=== PATIENT | female | born 1995 | race Native Hawaiian/Other Pacific Islander ===

== ENCOUNTER 2017-07-19 09:17 | Emergency (ER) | payer OTHER ==
[~2017-07-19] VITALS: Ht 152.4 cm; Wt 60.3 kg
[2017-07-19 09:25] VITALS: BP 146/86; TEMP 98.1
[2017-07-19 10:04] LABS: PLATELET COUNT 274 K/uL (152-353)
[2017-07-19 10:11] LABS: POTASSIUM 3.6 mmol/L (3.6-5.2)
== END 2017-07-19 10:50 | disposition home or self-care (01) ==
LOC: ED 09:17
DX: K21.9 Gastro-esophageal reflux disease without esophagitis (principal)
CPT/HCPCS: 36415; 80048; 82150; 83690; 85027; 99283

== ENCOUNTER 2019-02-18 02:39 | Observation (INO) | payer OTHER ==
[~2019-02-18] VITALS: Ht 157.5 cm; Wt 64.0 kg
[2019-02-18 03:00] VITALS: BP 142/91; TEMP 98.1
[2019-02-18 03:35] LABS: PLATELET COUNT 300 K/uL (152-353)
[2019-02-18 03:42] LABS: POTASSIUM 3.8 mmol/L (3.6-5.2)
[2019-02-18 08:25] VITALS: BP 129/89; TEMP 98.8
[2019-02-18 12:03] VITALS: BP 131/93; TEMP 97.6
[2019-02-18 12:24] VITALS: BP 131/83; TEMP 97.6; Ht 157.5 cm; Wt 64.0 kg
[2019-02-18 16:00] VITALS: BP 135/73; TEMP 98.2
[2019-02-18 20:00] VITALS: BP 116/74; TEMP 98.6
[2019-02-19] VITALS (11 sets, daily range): BP systolic 111–131; BP diastolic 56–76; TEMP 97.7–98.6
[2019-02-19 05:42] LABS: PLATELET COUNT 215 K/uL (152-353)
[2019-02-19 05:50] LABS: POTASSIUM 3.8 mmol/L (3.6-5.2)
== END 2019-02-19 16:30 | disposition home or self-care (01) ==
LOC: ED 02:39 → MED/SURG 10:37
PROVIDERS: Emergency Medicine; Family Medicine; ADMIT Emergency Medicine
PROC: 0FT44ZZ Resection of Gallbladder, Percutaneous Endoscopic Approach (ICD-10-PCS; principal; 2019-02-19)
DX: K80.12 Calculus of gallbladder with acute and chronic cholecystitis without obstruction (principal)
CPT/HCPCS: 36415; 80053; 81000; 81025; 82150; 83605; 83690; 85027; 87040; 87077; 87185; 87205; 93005; 96360; 96365; 96375; 99220; 99284; G0378; J0132; J0330; J0690; J1100; J1170; J1885; J2001; J2175; J2250; J2405; J2543; J2704; J2710; J2765; J3010; J3490